=== PATIENT | female | born 1995 | race Caucasian/White ===

== ENCOUNTER 2019-06-25 00:53 | Inpatient (IN) | payer MEDICAID ==
[2019-06-25] MEDS ORDERED: cefTRIAXone 1 GM in Sodium Chloride 0.9% 100 ML IV ONE (01:16)
[2019-06-25] MEDS ORDERED: Lactated Ringers 1,000 ML IV ONE (01:16)
[2019-06-25] MEDS ORDERED: metroNIDAZOLE/Normal Saline 500 MG in Premix Bag 1 BAG IV ONE (01:16)
[2019-06-25] MEDS ORDERED: Pantoprazole 40 MG Vial IVPUSH ONE (01:16)
[2019-06-25] MEDS ORDERED: Famotidine 20 MG/2 ML SDV IVPUSH ONE (01:16)
--- NOTE | 2019-06-25 01:16 | EDM.PDOC ---
ED HPI GENERAL MEDICAL PROBLEM - General Chief Complaint: Abdominal Pain Stated Complaint: abdominal pain Time Seen by Provider: 06/25/19 01:10 Source of Information: Reports: Patient, Family, Old Records ([facility] chart/EMR) History Limitations: Reports: No Limitations - History of Present Illness INITIAL COMMENTS - FREE TEXT/NARRATIVE: Patient was brought to the emergency room via private automobile by her for evaluation of 06/27 diffuse generalized sharp abdominal pain, which started at about 18:00 hours this evening. She began having some mild URI symptoms, sore throat, nonproductive cough, fever, and chills since about 20:00 hours on with no known exposure to infection. She did have a fever of 101 at 21:00 hours this evening with no antipyretic medications taken to this point. She has also not used any OTC GI preparations. No recent history of heartburn, nausea, diarrhea, melena, gross hematochezia, or any food intolerance, including fatty foods, etc. with normal bowel movement yesterday at noon. She denies any gross hematuria, colic, or other UTI symptoms. The patient also denies any recent cough, wheezing, dyspnea, etc.. Her abdominal pain does radiate into the back bilaterally. She has been using Mucinex during the last couple of days. Patient denies any sore throat currently. Onset: Gradual Onset Date: 06/23/19 Onset Time: 20:00 Duration: Constant, Getting Worse Location: Reports: Abdomen, Back. Denies: Head, Face, Neck, Chest, Upper Extremity, Left, Upper Extremity, Right, Radiates to Quality: Reports: Sharp Severity: Moderate Improves with: Reports: None Worsens with: Reports: None Context: Reports: Other (As above). Denies: Sick Contact, Trauma Associated Symptoms: Reports: Cough, Fever/Chills. Denies: Confusion, Chest Pain, cough w sputum, Diaphoresis, Headaches, Loss of Appetite, Nausea/Vomiting , Rash, Shortness of Breath, Syncope, Weakness Treatments IN FLIGHT TECHNICIAN: Reports: Other Medication(s) Other Treatments IN FLIGHT TECHNICIAN: Mucinex Abdomen Pain Score (Numeric/FACES): 8 - Related Data Allergies Allergy/AdvReac Type Severity Reaction Status Date / Time amoxicillin Allergy Rash Verified 06/25/19 00:54 clarithromycin [From Biaxin] Allergy Rash Verified 12/06/14 14:53 Penicillins Allergy Rash Verified 12/06/14 14:52 Sulfa (Sulfonamide Allergy Rash Verified 12/06/14 14:52 Antibiotics) Home Meds: Home Meds Cetirizine [ZyrTEC] 10 mg PO DAILY 06/25/19 [History] FLUoxetine [PROzac] 20 mg PO DAILY 06/25/19 [History] Levothyroxine 25 mcg PO ACBREAKFAST 06/25/19 [History] guaiFENesin [Mucinex] 600 mg PO BID PRN 06/25/19 [History] Past Medical History HEENT History: Reports: Allergic Rhinitis, Impaired Vision, Otitis Media, Other (See Below). Denies: Cataract, Glaucoma, Hard of Hearing, Macular Degeneration , Retinal Detachment Other HEENT History: She wears glasses and soft contact lenses. Cardiovascular History: Reports: None. Denies: Afib, Aneurysm, Arrhythmia, Blood Clots/VTE/DVT, CAD, Heart Murmur, High Cholesterol, Hypertension, Syncope Respiratory History: Reports: Bronchitis, Recurrent, Intubation, Previous. Denies: Asthma, COPD, Intubation, Difficult, PE, Pneumonia, Recurrent, Pneumothorax, Sleep Apnea, TB Gastrointestinal History: Reports: None, Gastritis, Helicobacter Pylori, Other ( See Below). Denies: Celiac Disease, Cholelithiasis, Chronic Constipation, Chronic Diarrhea, Fecal Incontinence, GERD, GI Bleed, Hepatitis, Irritable Bowel Syndrome, Jaundice, Pancreatitis, PUD Other Gastrointestinal History: Previously treated H. pylori infection at age 9. Genitourinary History: Reports: None. Denies: Acute Renal Failure, Chronic Renal Insuffiency, Renal Calculus, STD, Urinary Incontinence, UTI, Recurrent TRAVELING REPRESENTATIVE History: Reports: : 2 Para: 2 LMP (Approximate): Other (See Below) Other TRAVELING REPRESENTATIVE History: Amenorrhea secondary to IUD placement. Full term without complications during pregnancies or deliveries. Musculoskeletal History: Reports: None, Fracture, Other (See Below). Denies: Arthritis, Back Pain, Chronic, Gout, Neck Pain, Chronic, Osteoarthritis, RA, SLE Other Musculoskeletal History: Right proximal radial and ulnar fracture at age 4. Left radial and ulnar fracture at age 22. Neurological History: Reports: Headaches, Chronic, Migraines. Denies: Cerebral Aneurysms, Concussion, CVA, Head Trauma, MS, Parkinson's, Seizure, TIA, Vertigo Psychiatric History: Reports: Anxiety, Depression. Denies: Abuse, Victim of, ADD, ADHD, Addiction, Psych Hospitalization(s), PTSD, Suicide Attempt, Suicidal Ideation Endocrine/Metabolic History: Reports: Hypothyroidism, Obesity/BMI 30+. Denies: Diabetes, Gestational, Diabetes, Type I, Diabetes, Type II, Diabetes Mellitus, Type 3c, IDDM Hematologic History: Reports: None. Denies: Anemia, Blood Transfusion(s), Iron Deficiency Immunologic History: Reports: None. Denies: AIDS, HIV, SLE Oncologic (Cancer) History: Reports: None. Denies: Basal Cell Carcinoma, Breast , Cervix, Colon, Hodgkin's Lymphoma, Leukemia, Lymphoma, Malignant Melanoma, Non -Hodgkin's Lymphoma, Ovarian, Squamous Cell Carcinoma, Uterine Dermatologic History: Reports: None. Denies: Eczema, Psoriasis - Infectious Disease History Infectious Disease History: Reports: Chicken Pox, Helicobacter Pylori ( Previously treated as above). Denies: C-Difficile, Measles, Meningitis, Mononucleosis, MRSA, Mumps, Pertussis (Whooping Cough), Rheumatic Fever, Rubella , Scarlet Fever, Shingles, TB, VRE - Past Surgical History Head Surgeries/Procedures: Reports: None HEENT Surgical History: Reports: Adenoidectomy, Myringotomy w Tube(s), Tonsillectomy, Other (See Below). Denies: Cataract Surgery, Eye Surgery, Laser Surgery, LASIK, Naso-Sinus Surgery, Oral Surgery Other HEENT Surgeries/Procedures: Bilateral PE tubes as a child. Tonsillectomy and adenoidectomy on 10/26/02. Cardiovascular Surgical History: Reports: None. Denies: Varicose Respiratory Surgical History: Reports: None. Denies: Thoracentesis GI Surgical History: Reports: None. Denies: Appendectomy, Cholecystectomy, Colonoscopy, EGD, Hernia, Abdominal, Hernia, Inguinal, Hernia Repair/Other Female Surgical History: Reports: Other (See Below). Denies: Breast Biopsy, Section, D&C, Hysterectomy, Oophorectomy, Salpingo-Oophorectomy, Tubal Ligation Other Female Surgeries/Procedures: IUD in February 2017. Endocrine Surgical History: Reports: None. Denies: Thyroid Biopsy Neurological Surgical History: Reports: None. Denies: C-Spine, Discectomy, Laminectomy, Lumbar Spine, Sacral Spine, Spinal Fusion, Thoracic Spine, Vertebroplasty Musculoskeletal Surgical History: Reports: ORIF, Other (See Below). Denies: Arthroscopic Procedure, Carpal Tunnel, Ganglion Cyst, Joint Replacement, Shoulder Surgery Other Musculoskeletal Surgeries/Procedures:: ORIF of proximal right sided radial /ulnar fracture at age 4. Oncologic Surgical History: Reports: None Dermatological Surgical History: Reports: None - Past Imaging History Past Imaging History: Reports: Ultrasound (OB ultrasounds.) Social & Family History - Family History HEENT: Reports: None. Denies: Glaucoma, Macular Degeneration, Retinal Detachment Cardiac: Reports: CAD, High Cholesterol, NM, Other (See Below). Denies: Afib, Aneurysm, Arrhythmia, Blood Clots/VTE/DVT, Heart Failure, Hypertension, PVD/COD , Syncope Other Cardiac Family History: Paternal grandfather with fatal NM at age 42 with additional hyperlipidemia. Respiratory: Denies: Asthma, COPD, PE, Pneumothorax, Sleep Apnea GI: Reports: None. Denies: Celiac Disease, Cholelithiasis, Colon Polyps, GERD, GI bleed, Inflammatory Bowel Disease, Irritable Bowel Syndrome, PUD : Reports: None. Denies: Renal Calculus, Renal Disease/Insufficiency OBGYN: Reports: None. Denies: Fibroids, Recurrent Spontaneous Musculoskeletal: Reports: None. Denies: Arthritis, Gout, RA, SLE Neurological: Reports: None. Denies: Alzheimers Disease, CVA, Dementia, Migraines, MS, Parkinson's, Seizure, TIA Psychiatric: Reports: None. Denies: Abuse, Victim of, ADD, ADHD, Anxiety, Depression, Psych Hospitalization(s), PTSD, Suicide Attempt Endocrine/Metabolic: Reports: Diabetes, Type I, Hypothyroidism, IDDM, Other ( See Below). Denies: Diabetes, type II Other Endocrine/Metabolic Family History: Paternal grandfather with type I IDDM and hypothyroidism. Hematologic: Reports: None. Denies: Anemia Immunologic: Reports: None. Denies: AIDS, HIV, SLE Dermatologic: Reports: None. Denies: Eczema, Psoriasis Oncologic: Reports: Leukemia, Thyroid, Other (See Below). Denies: Breast, Colon , Hodgkin's Lymphoma, Lymphoma, Non-Hodgkin's Lymphoma, Ovarian, Skin, Uterine Other Oncologic Family History: Paternal grandfather with thyroid cancer. Paternal grandmother with leukemia at age 67. - Tobacco Use Smoking Status *Q: Former Smoker Tobacco Use Within Last Twelve Months: No Years of Tobacco use: 3 Packs/Tins Daily: 0.5 Packs/Tins Daily Comment: Stopped smoking in August 2014. Used Tobacco, but Quit: Yes Smoking Cessation Information Provided To Patient: No Second Hand Smoke Exposure: No Second Hand Smoke Education Provided: No - Caffeine Use Caffeine Use: Reports: Soda (2 sodas per day). Denies: Coffee, Energy Drinks, Tea - Alcohol Use Alcohol Use History: Yes Days Per Week of Alcohol Use: 0 Number of Drinks Per Day: 4 Number of Drinks Per Day Comment: Usually mixed drinks about once per month. No previous DWIs, problems with alcohol abuse, etc. 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 ED EXAM, GI/ABD - Physical Exam Exam: See Below Exam Limited By: No Limitations General Appearance: Alert, WD/WN, No Apparent Distress Eyes: Bilateral: Normal Appearance Ears: Normal External Exam, Normal Canal, Hearing Grossly Normal, Normal TMs Nose: Normal Mucosa, No Blood, Clear Rhinorrhea (Mild bilateral) Throat/Mouth: Normal Lips, Normal Teeth, Normal Gums, Normal Voice, No Airway Compromise. No: Normal Oropharynx (Mild dry oral mucosa), Dysphagia, Perioral Cyanosis Head: Atraumatic, Normocephalic. No: Facial Swelling, Facial Tenderness, Sinus Tenderness Neck: Normal Inspection, Supple, Non-Tender, Full Range of Motion. No: Carotid Bruit, Lymphadenopathy (L), Lymphadenopathy (R), Thyromegaly Respiratory/Chest: No Respiratory Distress, Lungs Clear, Normal Breath Sounds, No Accessory Muscle Use, Chest Non-Tender. No: Pleural Rub, Retractions Cardiovascular: Normal Peripheral Pulses, Regular Rate, Rhythm, No Edema, No Gallop, No JVD, No Murmur, No Rub. No: Gallop/S3, Gallop/S4, Friction Rub GI/Abdominal Exam: Normal Bowel Sounds, No Organomegaly, No Distention, No Abnormal Bruit, No Mass, Tender (Mild to moderate right upper quadrant palpation pain). No: Guarding, Rigid, Rebound (Female) Exam: Deferred Rectal (Female) Exam: Deferred Back Exam: Normal Inspection, Full Range of Motion. No: CVA Tenderness (L), CVA Tenderness (R), Muscle Spasm Extremities: Normal Inspection, Normal Range of Motion, Non-Tender, No Pedal Edema, Normal Capillary Refill. No: Vasyl's Sign Neurological: Alert, Oriented, CN II-XII Intact, Normal Cognition, Normal Gait, Normal Reflexes (Negative Babinski's), No Motor/Sensory Deficits Psychiatric: Normal Affect, Normal Mood Skin Exam: Warm, Dry, Intact, Normal Color, No Rash. No: Diaphoretic, Wound/ Incision Lymphatic: No Adenopathy Course - Vital Signs Last Recorded V/S: Last Vital Signs Temp 37.7 C 06/25/19 02:45 Pulse 85 06/25/19 02:45 Resp 19 06/25/19 02:45 BP 119/56 L 06/25/19 02:45 Pulse Ox 93 L 06/25/19 02:45 Vital Signs - 24 hr 06/25/19 06/25/19 06/25/19 01:06 01:10 01:42 Temperature [ 37.9 C Oral] Pulse, 102 H 102 H 90 Peripheral [ Right Pulse Oximetry] Respiratory 20 18 18 Rate Blood Pressure 98/56 L 92/63 92/57 L [Right Upper Arm] O2 Sat by Pulse 92 L 92 L 94 L Oximetry 06/25/19 06/25/19 06/25/19 01:58 02:12 02:45 Temperature [ 37.7 C Oral] Pulse, 86 85 85 Peripheral [ Right Pulse Oximetry] Respiratory 18 18 19 Rate Blood Pressure 99/65 104/75 119/56 L [Right Upper Arm] O2 Sat by Pulse 93 L 93 L 93 L Oximetry - Orders/Labs/Meds Orders: Active Orders 24 hr Category Date Time Status Cardiac Monitoring [RC] . DIRECTED Care 06/25/19 01:53 Active Peripheral IV Care [RC] . DIRECTED Care 06/25/19 01:16 Active Nothing Per Oral Diet [DIET] Diet 06/25/19 Breakfast Active Abdomen Series w Chest 1V [CR] Stat Exams 06/25/19 01:16 Ordered CULTURE BLOOD [BC] Stat Lab 06/25/19 01:35 Received CULTURE URINE [RM] Stat Lab 06/25/19 01:16 Ordered OCCULT BLOOD DIAGNOSTIC [OP] Stat Lab 06/25/19 01:16 Ordered STREP SCRN A RAPID W CULT CONF [RM] Stat Lab 06/25/19 02:10 Results Sodium Chloride 0.9% [Saline Flush] Med 06/25/19 01:16 Active 10 ml FLUSH ASDIRECTED PRN Blood Culture x2 Reflex Set [OM.PC] Urgent Oth 06/25/19 01:16 Ordered Obtain Past Medical Record [OM.PC] Urgent Oth 06/25/19 01:16 Active Peripheral IV Insertion Adult [OM.PC] Stat Oth 06/25/19 01:16 Ordered Resuscitation Status Stat Resus Stat 06/25/19 01:16 Ordered Medication Orders Sodium Chloride (Saline Flush) 10 ml FLUSH ASDIRECTED PRN PRN Reason: Keep Vein Open Last Admin: 06/25/19 02:08 Dose: 10 ml Admin: 06/25/19 02:07 Dose: 10 ml Admin: 06/25/19 02:00 Dose: 10 ml Labs: Laboratory Tests 06/25/19 06/25/19 06/25/19 Range/Units 01:35 01:35 01:35 WBC 21.7 H (4.0-10.2) K/uL RBC 4.76 (3.77-5.09) M/uL Hgb 15.0 (11.7-15.5) g/dL Hct 42.6 (34.0-46.0) % MCV 89.5 (84.0-98.0) fL MCH 31.5 (28.2-33.3) pg MCHC 35.2 (31.7-36.0) g/dL RDW 12.3 (11.2-14.1) % Plt Count 235 (150-350) K/uL Neut % (Auto) 85.1 H (45.0-80.0) % Lymph % (Auto) 8.8 L (10.0-50.0) % Cameron % (Auto) 5.1 (2.0-14.0) % Eos % (Auto) 0.9 (0.0-5.0) % Baso % (Auto) 0.1 (0.0-2.0) % Neut # (Auto) 18.46 H (1.40-7.00) K/uL Lymph # (Auto) 1.90 (0.50-3.50) K/uL Cameron # (Auto) 1.10 H (0.00-1.00) K/uL Eos # (Auto) 0.20 (0.00-0.50) K/uL Baso # (Auto) 0.03 (0.00-0.20) K/uL PT 11.0 (9.5-12.0) SEC INR 1.0 APTT 32.4 H (21.0-31.3) SEC Sodium (136-145) mmol/L Potassium (3.5-5.1) mmol/L Chloride (98-107) mmol/L Carbon Dioxide (21.0-32.0) mmol/L BUN (7-18) mg/dL Creatinine (0.51-1.17) mg/dL Est Cr Clr Drug Dosing Estimated GFR (MDRD) mL/min Glucose (74-106) mg/dL Lactic Acid (0.4-2.0) mmol/L Uric Acid (2.6-7.2) mg/dL Calcium (8.5-10.1) mg/dL Magnesium (1.8-2.4) mg/dL Total Bilirubin (0.2-1.0) mg/dL AST (15-37) U/L ALT (12-78) U/L Alkaline Phosphatase (46-116) IU/L Total Protein (6.4-8.2) g/dL Albumin (3.4-5.0) g/dL Amylase 23 L (25-115) U/L Lipase (73-393) U/L HCG, Qual (NEGATIVE) Specimen Type Urine Color Urine Appearance Urine pH (5.0-9.0) Ur Specific [place] (1.005-1.030) Urine Protein (NEGATIVE) mg/dL Urine Glucose (UA) (NEGATIVE) mg/dL Urine Ketones (NEGATIVE) mg/dL Urine Occult Blood (NEGATIVE) Urine Nitrite (NEGATIVE) Urine Bilirubin (NEGATIVE) Urine Urobilinogen (0.2-1.0) E.U./dL Ur Leukocyte Esterase (NEGATIVE) Urine RBC /HPF Urine WBC /HPF Ur Epithelial Cells /LPF Urine Bacteria (NONE TO FEW) /HPF Monoscreen (NEGATIVE) 06/25/19 06/25/19 06/25/19 Range/Units 01:35 01:35 01:35 WBC (4.0-10.2) K/uL RBC (3.77-5.09) M/uL Hgb (11.7-15.5) g/dL Hct (34.0-46.0) % MCV (84.0-98.0) fL MCH (28.2-33.3) pg MCHC (31.7-36.0) g/dL RDW (11.2-14.1) % Plt Count (150-350) K/uL Neut % (Auto) (45.0-80.0) % Lymph % (Auto) (10.0-50.0) % Cameron % (Auto) (2.0-14.0) % Eos % (Auto) (0.0-5.0) % Baso % (Auto) (0.0-2.0) % Neut # (Auto) (1.40-7.00) K/uL Lymph # (Auto) (0.50-3.50) K/uL Cameron # (Auto) (0.00-1.00) K/uL Eos # (Auto) (0.00-0.50) K/uL Baso # (Auto) (0.00-0.20) K/uL PT (9.5-12.0) SEC INR APTT (21.0-31.3) SEC Sodium 136 (136-145) mmol/L Potassium 3.7 (3.5-5.1) mmol/L Chloride 100 (98-107) mmol/L Carbon Dioxide 25.2 (21.0-32.0) mmol/L BUN 11 (7-18) mg/dL Creatinine 0.86 (0.51-1.17) mg/dL Est Cr Clr Drug Dosing TNP Estimated GFR (MDRD) > 60 mL/min Glucose 103 (74-106) mg/dL Lactic Acid 1.2 (0.4-2.0) mmol/L Uric Acid 5.7 (2.6-7.2) mg/dL Calcium 9.0 (8.5-10.1) mg/dL Magnesium 1.4 L (1.8-2.4) mg/dL Total Bilirubin 0.6 (0.2-1.0) mg/dL AST 10 L (15-37) U/L ALT 22 (12-78) U/L Alkaline Phosphatase 82 (46-116) IU/L Total Protein 7.7 (6.4-8.2) g/dL Albumin 3.5 (3.4-5.0) g/dL Amylase (25-115) U/L Lipase 36 L (73-393) U/L HCG, Qual Negative (NEGATIVE) Specimen Type Urine Color Urine Appearance Urine pH (5.0-9.0) Ur Specific [place] (1.005-1.030) Urine Protein (NEGATIVE) mg/dL Urine Glucose (UA) (NEGATIVE) mg/dL Urine Ketones (NEGATIVE) mg/dL Urine Occult Blood (NEGATIVE) Urine Nitrite (NEGATIVE) Urine Bilirubin (NEGATIVE) Urine Urobilinogen (0.2-1.0) E.U./dL Ur Leukocyte Esterase (NEGATIVE) Urine RBC /HPF Urine WBC /HPF Ur Epithelial Cells /LPF Urine Bacteria (NONE TO FEW) /HPF Monoscreen (NEGATIVE) 06/25/19 06/25/19 Range/Units 02:10 02:30 WBC (4.0-10.2) K/uL RBC (3.77-5.09) M/uL Hgb (11.7-15.5) g/dL Hct (34.0-46.0) % MCV (84.0-98.0) fL MCH (28.2-33.3) pg MCHC (31.7-36.0) g/dL RDW (11.2-14.1) % Plt Count (150-350) K/uL Neut % (Auto) (45.0-80.0) % Lymph % (Auto) (10.0-50.0) % Cameron % (Auto) (2.0-14.0) % Eos % (Auto) (0.0-5.0) % Baso % (Auto) (0.0-2.0) % Neut # (Auto) (1.40-7.00) K/uL Lymph # (Auto) (0.50-3.50) K/uL Cameron # (Auto) (0.00-1.00) K/uL Eos # (Auto) (0.00-0.50) K/uL Baso # (Auto) (0.00-0.20) K/uL PT (9.5-12.0) SEC INR APTT (21.0-31.3) SEC Sodium (136-145) mmol/L Potassium (3.5-5.1) mmol/L Chloride (98-107) mmol/L Carbon Dioxide (21.0-32.0) mmol/L BUN (7-18) mg/dL Creatinine (0.51-1.17) mg/dL Est Cr Clr Drug Dosing Estimated GFR (MDRD) mL/min Glucose (74-106) mg/dL Lactic Acid (0.4-2.0) mmol/L Uric Acid (2.6-7.2) mg/dL Calcium (8.5-10.1) mg/dL Magnesium (1.8-2.4) mg/dL Total Bilirubin (0.2-1.0) mg/dL AST (15-37) U/L ALT (12-78) U/L Alkaline Phosphatase (46-116) IU/L Total Protein (6.4-8.2) g/dL Albumin (3.4-5.0) g/dL Amylase (25-115) U/L Lipase (73-393) U/L HCG, Qual (NEGATIVE) Specimen Type Urinvoid Urine Color Yellow Urine Appearance Clear Urine pH 8.5 (5.0-9.0) Ur Specific [place] 1.015 (1.005-1.030) Urine Protein Negative (NEGATIVE) mg/dL Urine Glucose (UA) Negative (NEGATIVE) mg/dL Urine Ketones Negative (NEGATIVE) mg/dL Urine Occult Blood Negative (NEGATIVE) Urine Nitrite Negative (NEGATIVE) Urine Bilirubin Negative (NEGATIVE) Urine Urobilinogen 1.0 (0.2-1.0) E.U./dL Ur Leukocyte Esterase Negative (NEGATIVE) Urine RBC 0-5 /HPF Urine WBC 0-5 /HPF Ur Epithelial Cells Few /LPF Urine Bacteria Few (NONE TO FEW) /HPF Monoscreen Negative (NEGATIVE) Blood culture 1 collected Urine specimen set up for culture and sensitivity Microbiology 06/25/19 02:10 Group A Streptococcus Rapid Screen - Final Throat NEGATIVE STREP A SCREEN REFERENCE RANGE: NEGATIVE Meds: Medications Generic Name Dose Route Start Last Admin Trade Name Freq PRN Reason Stop Dose Admin Sodium Chloride 10 ml 06/25/19 01:16 06/25/19 02:56 Saline Flush FLUSH 10 ml ASDIRECTED PRN Administration Keep Vein Open Discontinued Medications Generic Name Dose Route Start Last Admin Trade Name Freq PRN Reason Stop Dose Admin Famotidine 40 mg 06/25/19 01:16 06/25/19 02:07 Pepcid IVPUSH 06/25/19 01:17 40 mg ONETIME ONE Administration Ceftriaxone Sodium 1 gm/ 100 mls @ 200 mls/hr 06/25/19 01:16 06/25/19 03:04 Sodium Chloride IV 06/25/19 01:45 Not Given ONETIME ONE Lactated Ringer's 1,000 mls @ 999 mls/hr 06/25/19 01:16 06/25/19 02:56 Ringers, Lactated IV 06/25/19 02:16 999 mls/hr .BOLUS ONE Administration Metronidazole 500 mg/ Premix 100 mls @ 100 mls/hr 06/25/19 01:16 06/25/19 02: 55 IV 06/25/19 02:15 100 mls/hr ONETIME ONE Administration Ceftriaxone Sodium 2 gm/ 100 mls @ 100 mls/hr 06/25/19 01:52 06/25/19 01:59 Sodium Chloride IV 06/25/19 02:51 100 mls/hr ONETIME ONE Administration Pantoprazole Sodium 40 mg 06/25/19 01:16 06/25/19 02:07 Protonix Iv IVPUSH 06/25/19 01:17 40 mg ONETIME ONE Administration - Radiology Interpretation Free Text/Narrative:: Micro Computer Data Processor shows normal sinus rhythm with heart rate in the 80s to 90s no ectopy or arrhythmia. Acute abdominal x-rays shows evidence of mild occasional nonspecific fluid levels with no significant ileus, obstruction, free air, cardiomegaly, CHF, pulmonary infiltrates, pneumothorax, etc. Departure - Departure Time of Disposition: 03:10 Disposition: Admitted As Inpatient 65 Condition: Good Clinical Impression: Abdominal pain, Obesity (BMI 35.0-39.9 without comorbidity), Mixed anxiety depressive disorder, Dehydration, Hypomagnesemia - Discharge Information *PRESCRIPTION DRUG MONITORING PROGRAM REVIEWED*: Not Applicable *COPY OF PRESCRIPTION DRUG MONITORING REPORT IN PATIENT ELOISE: Not Applicable Referrals: Lynn Barker NP [Primary Care Provider] - Forms: ED Department Discharge Care Plan Goals: See plan - Problem List & Annotations (1) Abdominal pain SNOMED Code(s): 04976346 Code(s): R10.9 - UNSPECIFIED ABDOMINAL PAIN Status: Acute Priority: High Onset Date: 06/24/19 Annotation/Comment:: Generalized abdominal pain with clinical exam showing mostly right upper quadrant abdominal pain. Abdominal ultrasound to be conducted later today. Note difficulty obtaining IV access with IV not amenable to CT scan of the abdomen at this time. Note significant leukocytosis. Mild hypotension on arriva, however normal lactic acid level with no direct indication of sepsis despite leukocytosis as above. Close observation of her vitals and abdominal status. High-dose IV Rocephin and additional IV Flagyl initiated in the emergency room. High-dose IV Protonix and IV Pepcid also given the emergency room as GI prophylaxis. Surgical consultation depending on her clinical course. Consider retrial of IV placement after patient is rehydrated with 1 L by IV bolus lactated Ringer's initiated in the emergency room. Secondary to difficult IV access only one blood culture could be obtained. Bobcat work excuse provided for the patient's . Patient to be admitted on telemetry secondary to significant leukocytosis. Qualifiers: Abdominal location: generalized Qualified Code(s): R10.84 - Generalized abdominal pain (2) Dehydration SNOMED Code(s): 98363077 Code(s): E86.0 - DEHYDRATION Status: Acute Priority: High Onset Date: 06/25/19 Annotation/Comment:: IV lactated Ringer's as above with continuation of IV fluids during early phases of this hospitalization. (3) Mixed anxiety depressive disorder SNOMED Code(s): 201720827 Code(s): F41.8 - OTHER SPECIFIED ANXIETY DISORDERS Status: Chronic Priority: Medium Annotation/Comment:: Stable by patient history (4) Obesity (BMI 35.0-39.9 without comorbidity) SNOMED Code(s): 758631672, 881043972 Code(s): E66.9 - OBESITY, UNSPECIFIED Status: Chronic Priority: Medium Annotation/Comment:: Previously normal glycosylated hemoglobin and lipid panel in 2018. Weight loss in moderation advisable. (5) Hypomagnesemia SNOMED Code(s): 271493006 Code(s): E83.42 - HYPOMAGNESEMIA Status: Acute Priority: Medium Onset Date: 06/25/19 Annotation/Comment:: Initiate magnesium oxide therapy on admission. - Problem List Review Problem List Initiated/Reviewed/Updated: Yes - My Orders Last 24 Hours: My Active Orders 06/25/19 01:16 Peripheral IV Care [RC] . DIRECTED Abdomen Series w Chest 1V [CR] Stat CULTURE URINE [RM] Stat OCCULT BLOOD DIAGNOSTIC [OP] Stat Sodium Chloride 0.9% [Saline Flush] 10 ml FLUSH ASDIRECTED PRN Blood Culture x2 Reflex Set [OM.PC] Urgent Obtain Past Medical Record [OM.PC] Urgent Peripheral IV Insertion Adult [OM.PC] Stat Resuscitation Status Stat 06/25/19 01:35 CULTURE BLOOD [BC] Stat 06/25/19 01:53 Cardiac Monitoring [RC] . DIRECTED 06/25/19 02:10 STREP SCRN A RAPID W CULT CONF [RM] Stat 06/25/19 Breakfast Nothing Per Oral Diet [DIET] - Assessment/Plan Admission H&P: Please use this note as an admission H&P Last 24 Hours: My Active Orders 06/25/19 01:16 Peripheral IV Care [RC] . DIRECTED Abdomen Series w Chest 1V [CR] Stat CULTURE URINE [RM] Stat OCCULT BLOOD DIAGNOSTIC [OP] Stat Sodium Chloride 0.9% [Saline Flush] 10 ml FLUSH ASDIRECTED PRN Blood Culture x2 Reflex Set [OM.PC] Urgent Obtain Past Medical Record [OM.PC] Urgent Peripheral IV Insertion Adult [OM.PC] Stat Resuscitation Status Stat 06/25/19 01:35 CULTURE BLOOD [BC] Stat 06/25/19 01:53 Cardiac Monitoring [RC] . DIRECTED 06/25/19 02:10 STREP SCRN A RAPID W CULT CONF [RM] Stat 06/25/19 Breakfast Nothing Per Oral Diet [DIET] Assessment:: As above Plan: As above. Extensive precautions were given to the patient and her , who are in agreement with the treatment plan. The patient will require about 3-4 days of inpatient/acute care secondary to multiple health problems as above.
[2019-06-25] MEDS ORDERED: cefTRIAXone 2 GM in Sodium Chloride 0.9% 100 ML IV ONE (01:52)
[2019-06-25 01:59] LABS: CHLORIDE,CL 100 mmol/L (98-107); SODIUM,NA 136 mmol/L (136-145)
[2019-06-25] MEDS: Sodium Chloride 0.9% 10 ML Syringe FLUSH PRN ×7 (02:00→14:16)
[2019-06-25] MEDS ORDERED: Ondansetron 4 MG/2 ML SDV IVPUSH PRN (03:25)
[2019-06-25] MEDS: Acetaminophen 325 MG Tab PO PRN ×2 (04:09→22:11)
[2019-06-25] MEDS: FLUoxetine 20 MG Cap PO SCH (08:42)
[2019-06-25] MEDS: Cetirizine 10 MG Tab PO SCH (08:42)
[2019-06-25] MEDS: Magnesium Oxide 400 MG Tab PO SCH ×2 (08:42→17:07)
[2019-06-25] MEDS: Dextromethorphan/guaiFENesin 600-30 MG Tab.ER PO SCH ×2 (08:42→17:07)
[2019-06-25] MEDS: Levothyroxine 25 MCG Tab PO SCH (08:42)
[2019-06-25] MEDS: Sodium Chloride 0.9% 10 ML Syringe FLUSH SCH ×2 (08:43→19:39)
[2019-06-25] MEDS ORDERED: Sodium Chloride 0.9% 10 ML Syringe FLUSH PRN (08:56)
[2019-06-25] MEDS ORDERED: Diatrizoate Meglumine/Diatrizoate Sodium 37% 30 ML Bottle PO ONE (09:13)
[2019-06-25] MEDS ORDERED: Iopamidol 612 MG/ML 100 ML Bottle IVPUSH ONE (10:00)
[2019-06-25] MEDS: metroNIDAZOLE/Normal Saline 500 MG in Premix Bag 1 BAG IV SCH ×2 (12:32→19:32)
[2019-06-25] MEDS: cefTRIAXone 1 GM in Sodium Chloride 0.9% 100 ML IV SCH (14:10)
[2019-06-25] MEDS: Pantoprazole 40 MG Vial IVPUSH SCH (14:13)
[2019-06-25] MEDS: Lactated Ringers 1,000 ML IV SCH (14:14)
[2019-06-25] MEDS ORDERED: Temazepam 15 MG Cap PO PRN (20:00)
[2019-06-26] MEDS: Pantoprazole 40 MG Vial IVPUSH SCH ×2 (01:23→13:02)
[2019-06-26] MEDS: cefTRIAXone 1 GM in Sodium Chloride 0.9% 100 ML IV SCH (01:28)
[2019-06-26] MEDS: metroNIDAZOLE/Normal Saline 500 MG in Premix Bag 1 BAG IV SCH ×3 (03:10→20:10)
[2019-06-26] MEDS: Sodium Chloride 0.9% 10 ML Syringe FLUSH PRN ×4 (03:15→22:47)
[2019-06-26] MEDS: Lactated Ringers 1,000 ML IV SCH (05:03)
[2019-06-26] MEDS: Famotidine 20 MG/2 ML SDV IVPUSH SCH ×2 (07:06→20:09)
[2019-06-26] MEDS: Levothyroxine 25 MCG Tab PO SCH (07:06)
[2019-06-26] MEDS: FLUoxetine 20 MG Cap PO SCH (07:07)
[2019-06-26] MEDS: Dextromethorphan/guaiFENesin 600-30 MG Tab.ER PO SCH ×2 (07:07→17:03)
[2019-06-26] MEDS: Magnesium Oxide 400 MG Tab PO SCH (07:07)
[2019-06-26] MEDS: Cetirizine 10 MG Tab PO SCH (07:08)
[2019-06-26] MEDS: Sodium Chloride 0.9% 10 ML Syringe FLUSH SCH ×2 (07:09→20:11)
[2019-06-26 07:51] LABS: CHLORIDE,CL 103 mmol/L (98-107); SODIUM,NA 137 mmol/L (136-145)
[2019-06-26] MEDS: Ciprofloxacin in D5W 200 MG in Premix Bag 1 BAG IV SCH ×4 (11:12→22:46)
--- NOTE | 2019-06-26 14:55 | PCM.PN ---
- General Info Date of Service: 06/26/19 Admission Dx/Problem (Free Text): Colitis Functional Status: Reports: Pain Controlled, Tolerating Diet, Ambulating, Urinating. Denies: New Symptoms, Incentive Spirometry Pain Score: 0 - Review of Systems General: Reports: No Symptoms. Denies: Fever, Weakness, Fatigue, Malaise, Chills, Night Sweats, Appetite (Better) HEENT: Reports: No Symptoms. Denies: Ear Pain, Eye Pain, Headaches, Post Nasal Drip, Sinus Congestion, Sore Throat, Rhinitis, Visual Changes Pulmonary: Reports: No Symptoms. Denies: Shortness of Breath, Pleuritic Chest Pain, Cough, Sputum, Wheezing Cardiovascular: Reports: No Symptoms. Denies: Chest Pain, Palpitations, Dyspnea on Exertion, Orthopnea, PND, Edema, Lightheadedness Gastrointestinal: Reports: No Symptoms. Denies: Abdominal Pain, Constipation, Decreased Appetite, Diarrhea, Difficulty Swallowing, Hematochezia, Melena, Nausea, Vomiting Genitourinary: Reports: No Symptoms. Denies: Dysuria, Frequency, Burning, Urgency, Incontinence, Hematuria, Retention, Flank Pain Musculoskeletal: Reports: No Symptoms. Denies: Neck Pain, Shoulder Pain, Arm Pain, Back Pain, Leg Pain Skin: Reports: No Symptoms. Denies: Diaphoresis, Bruising Neurological: Reports: No Symptoms. Denies: Confusion, Dizziness, Headache, Numbness, Paresthesia, Tingling, Weakness Psychiatric: Reports: No Symptoms. Denies: Confusion, Agitation, Hallucinations - Patient Data Vitals - Most Recent: Last Vital Signs Temp 36.6 C 06/26/19 12:00 Pulse 66 06/26/19 12:00 Resp 14 06/26/19 12:00 BP 105/50 L 06/26/19 12:00 Pulse Ox 96 06/26/19 12:00 Vital Signs - 24 hr 06/25/19 06/25/19 06/25/19 15:00 19:00 20:00 Temperature [ 37.1 C 37.3 C Temporal] Pulse, 85 Peripheral [ Left Pulse Oximetry] Pulse, 89 Peripheral [ Right Pulse Oximetry] Respiratory 16 14 Rate Blood Pressure 102/42 L 108/49 L [Left Upper Arm ] O2 Sat by Pulse 100 95 98 Oximetry 06/25/19 06/26/19 06/26/19 22:11 03:09 08:00 Temperature [ 36.9 C 36.0 C 37.1 C Temporal] Pulse, 80 70 68 Peripheral [ Left Pulse Oximetry] Pulse, Peripheral [ Right Pulse Oximetry] Respiratory 16 14 Rate Blood Pressure 107/60 98/56 L 96/55 L [Left Upper Arm ] O2 Sat by Pulse 97 98 98 Oximetry 06/26/19 12:00 Temperature [ 36.6 C Temporal] Pulse, 66 Peripheral [ Left Pulse Oximetry] Pulse, Peripheral [ Right Pulse Oximetry] Respiratory 14 Rate Blood Pressure 105/50 L [Left Upper Arm ] O2 Sat by Pulse 96 Oximetry Weight - Most Recent: 133.855 kg I&O - Last 24 Hours: Intake & Output 06/25/19 06/26/19 06/26/19 22:59 06:59 14:59 Intake Total 900 870 860 Output Total 1100 700 650 Balance -200 170 210 Imaging Impressions - Last 24 Hours: desk monitor shows normal sinus rhythm between the 60s and 80s with no ectopy or arrhythmia. Lab Results Last 24 Hours: Laboratory Results - last 24 hr 06/26/19 06/26/19 Range/Units 07:15 07:15 WBC 9.5 (4.0-10.2) K/uL RBC 4.13 (3.77-5.09) M/uL Hgb 13.0 D (11.7-15.5) g/dL Hct 37.9 (34.0-46.0) % MCV 91.8 (84.0-98.0) fL MCH 31.5 (28.2-33.3) pg MCHC 34.3 (31.7-36.0) g/dL RDW 12.4 (11.2-14.1) % Plt Count 166 (150-350) K/uL Neut % (Auto) 73.9 (45.0-80.0) % Lymph % (Auto) 13.8 (10.0-50.0) % Wise % (Auto) 7.9 (2.0-14.0) % Eos % (Auto) 4.3 (0.0-5.0) % Baso % (Auto) 0.1 (0.0-2.0) % Neut # (Auto) 7.00 (1.40-7.00) K/uL Lymph # (Auto) 1.31 (0.50-3.50) K/uL Wise # (Auto) 0.75 (0.00-1.00) K/uL Eos # (Auto) 0.41 (0.00-0.50) K/uL Baso # (Auto) 0.01 (0.00-0.20) K/uL Sodium 137 (136-145) mmol/L Potassium 4.0 (3.5-5.1) mmol/L Chloride 103 (98-107) mmol/L Carbon Dioxide 27.9 (21.0-32.0) mmol/L BUN 10 (7-18) mg/dL Creatinine 0.85 (0.51-1.17) mg/dL Est Cr Clr Drug Dosing 94.71 mL/min Estimated GFR (MDRD) > 60 mL/min Glucose 99 (74-106) mg/dL Calcium 8.4 L (8.5-10.1) mg/dL Magnesium 1.9 (1.8-2.4) mg/dL Total Bilirubin 0.2 (0.2-1.0) mg/dL AST 15 (15-37) U/L ALT 17 (12-78) U/L Alkaline Phosphatase 65 (46-116) IU/L Total Protein 6.6 (6.4-8.2) g/dL Albumin 2.9 L (3.4-5.0) g/dL Amylase 20 L (25-115) U/L Lipase 52 L (73-393) U/L Laboratory Tests 06/25/19 06/25/19 06/25/19 Range/Units 01:35 01:35 01:35 WBC 21.7 H (4.0-10.2) K/uL RBC 4.76 (3.77-5.09) M/uL Hgb 15.0 (11.7-15.5) g/dL Hct 42.6 (34.0-46.0) % MCV 89.5 (84.0-98.0) fL MCH 31.5 (28.2-33.3) pg MCHC 35.2 (31.7-36.0) g/dL RDW 12.3 (11.2-14.1) % Plt Count 235 (150-350) K/uL Neut % (Auto) 85.1 H (45.0-80.0) % Lymph % (Auto) 8.8 L (10.0-50.0) % Wise % (Auto) 5.1 (2.0-14.0) % Eos % (Auto) 0.9 (0.0-5.0) % Baso % (Auto) 0.1 (0.0-2.0) % Neut # (Auto) 18.46 H (1.40-7.00) K/uL Lymph # (Auto) 1.90 (0.50-3.50) K/uL Wise # (Auto) 1.10 H (0.00-1.00) K/uL Eos # (Auto) 0.20 (0.00-0.50) K/uL Baso # (Auto) 0.03 (0.00-0.20) K/uL PT 11.0 (9.5-12.0) SEC INR 1.0 APTT 32.4 H (21.0-31.3) SEC Sodium (136-145) mmol/L Potassium (3.5-5.1) mmol/L Chloride (98-107) mmol/L Carbon Dioxide (21.0-32.0) mmol/L BUN (7-18) mg/dL Creatinine (0.51-1.17) mg/dL Est Cr Clr Drug Dosing Estimated GFR (MDRD) mL/min Glucose (74-106) mg/dL Lactic Acid (0.4-2.0) mmol/L Uric Acid (2.6-7.2) mg/dL Calcium (8.5-10.1) mg/dL Magnesium (1.8-2.4) mg/dL Total Bilirubin (0.2-1.0) mg/dL AST (15-37) U/L ALT (12-78) U/L Alkaline Phosphatase (46-116) IU/L Total Protein (6.4-8.2) g/dL Albumin (3.4-5.0) g/dL Amylase 23 L (25-115) U/L Lipase (73-393) U/L HCG, Qual (NEGATIVE) Specimen Type Urine Color Urine Appearance Urine pH (5.0-9.0) Ur Specific [place] (1.005-1.030) Urine Protein (NEGATIVE) mg/dL Urine Glucose (UA) (NEGATIVE) mg/dL Urine Ketones (NEGATIVE) mg/dL Urine Occult Blood (NEGATIVE) Urine Nitrite (NEGATIVE) Urine Bilirubin (NEGATIVE) Urine Urobilinogen (0.2-1.0) E.U./dL Ur Leukocyte Esterase (NEGATIVE) Urine RBC /HPF Urine WBC /HPF Ur Epithelial Cells /LPF Urine Bacteria (NONE TO FEW) /HPF Monoscreen (NEGATIVE) 06/25/19 06/25/19 06/25/19 Range/Units 01:35 01:35 01:35 WBC (4.0-10.2) K/uL RBC (3.77-5.09) M/uL Hgb (11.7-15.5) g/dL Hct (34.0-46.0) % MCV (84.0-98.0) fL MCH (28.2-33.3) pg MCHC (31.7-36.0) g/dL RDW (11.2-14.1) % Plt Count (150-350) K/uL Neut % (Auto) (45.0-80.0) % Lymph % (Auto) (10.0-50.0) % Wise % (Auto) (2.0-14.0) % Eos % (Auto) (0.0-5.0) % Baso % (Auto) (0.0-2.0) % Neut # (Auto) (1.40-7.00) K/uL Lymph # (Auto) (0.50-3.50) K/uL Wise # (Auto) (0.00-1.00) K/uL Eos # (Auto) (0.00-0.50) K/uL Baso # (Auto) (0.00-0.20) K/uL PT (9.5-12.0) SEC INR APTT (21.0-31.3) SEC Sodium 136 (136-145) mmol/L Potassium 3.7 (3.5-5.1) mmol/L Chloride 100 (98-107) mmol/L Carbon Dioxide 25.2 (21.0-32.0) mmol/L BUN 11 (7-18) mg/dL Creatinine 0.86 (0.51-1.17) mg/dL Est Cr Clr Drug Dosing TNP Estimated GFR (MDRD) > 60 mL/min Glucose 103 (74-106) mg/dL Lactic Acid 1.2 (0.4-2.0) mmol/L Uric Acid 5.7 (2.6-7.2) mg/dL Calcium 9.0 (8.5-10.1) mg/dL Magnesium 1.4 L (1.8-2.4) mg/dL Total Bilirubin 0.6 (0.2-1.0) mg/dL AST 10 L (15-37) U/L ALT 22 (12-78) U/L Alkaline Phosphatase 82 (46-116) IU/L Total Protein 7.7 (6.4-8.2) g/dL Albumin 3.5 (3.4-5.0) g/dL Amylase (25-115) U/L Lipase 36 L (73-393) U/L HCG, Qual Negative (NEGATIVE) Specimen Type Urine Color Urine Appearance Urine pH (5.0-9.0) Ur Specific [place] (1.005-1.030) Urine Protein (NEGATIVE) mg/dL Urine Glucose (UA) (NEGATIVE) mg/dL Urine Ketones (NEGATIVE) mg/dL Urine Occult Blood (NEGATIVE) Urine Nitrite (NEGATIVE) Urine Bilirubin (NEGATIVE) Urine Urobilinogen (0.2-1.0) E.U./dL Ur Leukocyte Esterase (NEGATIVE) Urine RBC /HPF Urine WBC /HPF Ur Epithelial Cells /LPF Urine Bacteria (NONE TO FEW) /HPF Monoscreen (NEGATIVE) 06/25/19 06/25/19 06/26/19 Range/Units 02:10 02:30 07:15 WBC 9.5 (4.0-10.2) K/uL RBC 4.13 (3.77-5.09) M/uL Hgb 13.0 D (11.7-15.5) g/dL Hct 37.9 (34.0-46.0) % MCV 91.8 (84.0-98.0) fL MCH 31.5 (28.2-33.3) pg MCHC 34.3 (31.7-36.0) g/dL RDW 12.4 (11.2-14.1) % Plt Count 166 (150-350) K/uL Neut % (Auto) 73.9 (45.0-80.0) % Lymph % (Auto) 13.8 (10.0-50.0) % Wise % (Auto) 7.9 (2.0-14.0) % Eos % (Auto) 4.3 (0.0-5.0) % Baso % (Auto) 0.1 (0.0-2.0) % Neut # (Auto) 7.00 (1.40-7.00) K/uL Lymph # (Auto) 1.31 (0.50-3.50) K/uL Wise # (Auto) 0.75 (0.00-1.00) K/uL Eos # (Auto) 0.41 (0.00-0.50) K/uL Baso # (Auto) 0.01 (0.00-0.20) K/uL PT (9.5-12.0) SEC INR APTT (21.0-31.3) SEC Sodium (136-145) mmol/L Potassium (3.5-5.1) mmol/L Chloride (98-107) mmol/L Carbon Dioxide (21.0-32.0) mmol/L BUN (7-18) mg/dL Creatinine (0.51-1.17) mg/dL Est Cr Clr Drug Dosing Estimated GFR (MDRD) mL/min Glucose (74-106) mg/dL Lactic Acid (0.4-2.0) mmol/L Uric Acid (2.6-7.2) mg/dL Calcium (8.5-10.1) mg/dL Magnesium (1.8-2.4) mg/dL Total Bilirubin (0.2-1.0) mg/dL AST (15-37) U/L ALT (12-78) U/L Alkaline Phosphatase (46-116) IU/L Total Protein (6.4-8.2) g/dL Albumin (3.4-5.0) g/dL Amylase (25-115) U/L Lipase (73-393) U/L HCG, Qual (NEGATIVE) Specimen Type Urinvoid Urine Color Yellow Urine Appearance Clear Urine pH 8.5 (5.0-9.0) Ur Specific [place] 1.015 (1.005-1.030) Urine Protein Negative (NEGATIVE) mg/dL Urine Glucose (UA) Negative (NEGATIVE) mg/dL Urine Ketones Negative (NEGATIVE) mg/dL Urine Occult Blood Negative (NEGATIVE) Urine Nitrite Negative (NEGATIVE) Urine Bilirubin Negative (NEGATIVE) Urine Urobilinogen 1.0 (0.2-1.0) E.U./dL Ur Leukocyte Esterase Negative (NEGATIVE) Urine RBC 0-5 /HPF Urine WBC 0-5 /HPF Ur Epithelial Cells Few /LPF Urine Bacteria Few (NONE TO FEW) /HPF Monoscreen Negative (NEGATIVE) 06/26/19 Range/Units 07:15 WBC (4.0-10.2) K/uL RBC (3.77-5.09) M/uL Hgb (11.7-15.5) g/dL Hct (34.0-46.0) % MCV (84.0-98.0) fL MCH (28.2-33.3) pg MCHC (31.7-36.0) g/dL RDW (11.2-14.1) % Plt Count (150-350) K/uL Neut % (Auto) (45.0-80.0) % Lymph % (Auto) (10.0-50.0) % Wise % (Auto) (2.0-14.0) % Eos % (Auto) (0.0-5.0) % Baso % (Auto) (0.0-2.0) % Neut # (Auto) (1.40-7.00) K/uL Lymph # (Auto) (0.50-3.50) K/uL Wise # (Auto) (0.00-1.00) K/uL Eos # (Auto) (0.00-0.50) K/uL Baso # (Auto) (0.00-0.20) K/uL PT (9.5-12.0) SEC INR APTT (21.0-31.3) SEC Sodium 137 (136-145) mmol/L Potassium 4.0 (3.5-5.1) mmol/L Chloride 103 (98-107) mmol/L Carbon Dioxide 27.9 (21.0-32.0) mmol/L BUN 10 (7-18) mg/dL Creatinine 0.85 (0.51-1.17) mg/dL Est Cr Clr Drug Dosing 94.71 Estimated GFR (MDRD) > 60 mL/min Glucose 99 (74-106) mg/dL Lactic Acid (0.4-2.0) mmol/L Uric Acid (2.6-7.2) mg/dL Calcium 8.4 L (8.5-10.1) mg/dL Magnesium 1.9 (1.8-2.4) mg/dL Total Bilirubin 0.2 (0.2-1.0) mg/dL AST 15 (15-37) U/L ALT 17 (12-78) U/L Alkaline Phosphatase 65 (46-116) IU/L Total Protein 6.6 (6.4-8.2) g/dL Albumin 2.9 L (3.4-5.0) g/dL Amylase 20 L (25-115) U/L Lipase 52 L (73-393) U/L HCG, Qual (NEGATIVE) Specimen Type Urine Color Urine Appearance Urine pH (5.0-9.0) Ur Specific [place]y (1.005-1.030) Urine Protein (NEGATIVE) mg/dL Urine Glucose (UA) (NEGATIVE) mg/dL Urine Ketones (NEGATIVE) mg/dL Urine Occult Blood (NEGATIVE) Urine Nitrite (NEGATIVE) Urine Bilirubin (NEGATIVE) Urine Urobilinogen (0.2-1.0) E.U./dL Ur Leukocyte Esterase (NEGATIVE) Urine RBC /HPF Urine WBC /HPF Ur Epithelial Cells /LPF Urine Bacteria (NONE TO FEW) /HPF Monoscreen (NEGATIVE) Kody Results Last 24 Hours: Microbiology 06/25/19 02:30 Urine Culture - Final Urine, Clean Catch MIXED POSITIVE ADALGISA DAY 1 06/25/19 02:10 Quick Strep Confirmation Culture - Final Throat NO GROUP A STREP ISOLATED REFERENCE RANGE: NEGATIVE Group A Streptococcus Rapid Screen - Final NEGATIVE STREP A SCREEN REFERENCE RANGE: NEGATIVE 06/25/19 01:35 Aerobic Blood Culture - Preliminary Blood - Venous NO GROWTH AFTER 1 DAY Anaerobic Blood Culture - Preliminary NO GROWTH AFTER 1 DAY 06/25/19 10:00 Stool Occult Blood (KODY) - Final Stool / Feces NEGATIVE OCCULT BLOOD REFERENCE RANGE: NEGATIVE Med Orders - Current: Current Medications Acetaminophen (Tylenol) 650 mg PO Q4H PRN PRN Reason: Pain Last Admin: 06/25/19 22:11 Dose: 650 mg Cetirizine HCl (Zyrtec) 10 mg PO DAILY [facility]ANN[facility] Last Admin: 06/26/19 07:08 Dose: 10 mg Famotidine (Pepcid) 20 mg IVPUSH Q12H [facility] Last Admin: 06/26/19 07:06 Dose: 20 mg Fluoxetine HCl (Prozac) 20 mg PO DAILY [facility] Last Admin: 06/26/19 07:07 Dose: 20 mg Guaifenesin/Dextromethorphan (Mucinex Dm Er 600-30 Mg) 1 tab PO BID [facility] Last Admin: 06/26/19 07:07 Dose: 1 tab Metronidazole 500 mg/ Premix 100 mls @ 100 mls/hr IV Q8H [facility] Last Admin: 06/26/19 13:02 Dose: 100 mls/hr Lactated Ringer's (Ringers, Lactated) 1,000 mls @ 100 mls/hr IV ASDIRECTED [facility] Last Admin: 06/26/19 05:03 Dose: 100 mls/hr Ciprofloxacin/Dextrose 200 mg/ (Premix) 100 mls @ 100 mls/hr IV Q12H [facility] Last Admin: 06/26/19 11:12 Dose: 100 mls/hr Levothyroxine Sodium (Levothyroxine) 25 mcg PO ACBREAKFAST [facility] Last Admin: 06/26/19 07:06 Dose: 25 mcg Magnesium Oxide (Magnesium Oxide) 400 mg PO QPM [facility] Ondansetron HCl (Zofran) 4 mg IVPUSH Q6H PRN PRN Reason: Nausea/Vomiting Last Admin: 06/25/19 09:52 Dose: 4 mg Pantoprazole Sodium (Protonix Iv) 40 mg IVPUSH Q12H [facility] Last Admin: 06/26/19 13:02 Dose: 40 mg Sodium Chloride (Saline Flush) 10 ml FLUSH ASDIRECTED PRN PRN Reason: Keep Vein Open Last Admin: 06/26/19 13:07 Dose: 10 ml Sodium Chloride (Saline Flush) 10 ml FLUSH Q12HR [facility] Last Admin: 06/26/19 07:09 Dose: 10 ml Sodium Chloride (Saline Flush) 10 ml FLUSH ASDIRECTED PRN PRN Reason: Keep Vein Open Last Admin: 06/26/19 01:23 Dose: 10 ml Temazepam (Restoril) 15 mg PO DAILY@2000 PRN PRN Reason: Insomnia Discontinued Medications Diatrizoate Meglum/Diatrizoate Sod (Gastrografin 37%) 30 ml PO ONETIME ONE Stop: 06/25/19 09:14 Last Admin: 06/25/19 13:51 Dose: 30 ml Famotidine (Pepcid) 40 mg IVPUSH ONETIME ONE Stop: 06/25/19 01:17 Last Admin: 06/25/19 02:07 Dose: 40 mg Ceftriaxone Sodium 1 gm/ (Sodium Chloride) 100 mls @ 200 mls/hr IV ONETIME ONE Stop: 06/25/19 01:45 Last Admin: 06/25/19 03:04 Dose: Not Given Lactated Ringer's (Ringers, Lactated) 1,000 mls @ 999 mls/hr IV .BOLUS ONE Stop: 06/25/19 02:16 Last Admin: 06/25/19 02:56 Dose: 999 mls/hr Metronidazole 500 mg/ Premix 100 mls @ 100 mls/hr IV ONETIME ONE Stop: 06/25/19 02:15 Last Admin: 06/25/19 02:55 Dose: 100 mls/hr Ceftriaxone Sodium 2 gm/ (Sodium Chloride) 100 mls @ 100 mls/hr IV ONETIME ONE Stop: 06/25/19 02:51 Last Admin: 06/25/19 01:59 Dose: 100 mls/hr Ceftriaxone Sodium 1 gm/ (Sodium Chloride) 100 mls @ 200 mls/hr IV Q12H [facility] Last Admin: 06/26/19 01:28 Dose: 200 mls/hr Iopamidol (Isovue-300 (61%)) 100 ml IVPUSH ONETIME ONE Stop: 06/25/19 10:01 Last Admin: 06/25/19 14:00 Dose: Not Given Magnesium Oxide (Magnesium Oxide) 400 mg PO BID [facility] Last Admin: 06/26/19 07:07 Dose: 400 mg Pantoprazole Sodium (Protonix Iv) 40 mg IVPUSH ONETIME ONE Stop: 06/25/19 01:17 Last Admin: 06/25/19 02:07 Dose: 40 mg - Exam Quality Assessment: DVT Prophylaxis. No: Supplemental Oxygen, Urine Catheter, Skin Breakdown, Restraints General: Alert, Oriented, Cooperative, No Acute Distress HEENT: Pupils Equal, Pupils Reactive, EOMI, Mucous Membr. Moist/[place]. No: Scleral Icterus Neck: Supple, Trachea Midline, No JVD, No Thyromegaly, +2 Carotid Pulse wo Bruit. No: Lymphadenopathy Lungs: Clear to Auscultation, Normal Respiratory Effort. No: Rub Cardiovascular: Regular Rate, Regular Rhythm, No Murmurs. No: Gallops, Rubs GI/Abdominal Exam: Normal Bowel Sounds, Soft, Non-Tender, No Organomegaly, No Distention, No Abnormal Bruit, No Mass, Pelvis Stable, Other (Obese). No: Guarding (Female) Exam: Deferred Back Exam: Normal Inspection, Full Range of Motion. No: CVA Tenderness (L), CVA Tenderness (R), Muscle Spasm Extremities: Normal Inspection, Normal Range of Motion, Non-Tender, No Pedal Edema, Normal Capillary Refill. No: Vasyl's Sign Peripheral Pulses: 2+: Radial (L), Radial (R), Dorsalis Pedis (L), Dorsalis Pedis (R) Skin: Warm, Dry, Intact Neurological: No New Focal Deficit, Other (No clinical orthostasis) Psy/Mental Status: Alert, Normal Affect, Normal Mood. No: Hallucinations, Withdrawal Symptoms - Problem List & Annotations (1) Abdominal pain SNOMED Code(s): 60162463 Code(s): R10.9 - UNSPECIFIED ABDOMINAL PAIN Status: Acute Priority: High Current Visit: No Onset Date: 06/24/19 Qualifiers: Abdominal location: generalized Qualified Code(s): R10.84 - Generalized abdominal pain Annotation/Comment:: Symptoms completely resolved this morning with normal clinical exam as above. Various therapeutic options were discussed with the patient, who does wish to have an additional day of hospitalization so that we can further advance her diet. WBCs are now normal with previous significant leukocytosis on admission. Overall good response to aggressive IV Rocephin and IV Flagyl therapy. Patient is allergic to amoxicillin, however with range of Rocephin to IV Cipro at this time. No reaction from previous IV Rocephin, etc. therapy. Secondary to closed pharmacy tomorrow the patient's planned discharge medications of Cipro, Flagyl, and magnesium oxide were ordered today. Ezekiel Gerardo M.D. at the [facility] assumes care in the a.m. with likely discharge the patient to home tomorrow, if she tolerates changed IV Cipro and advancement of her diet as above. Generalized abdominal pain with clinical exam showing mostly right upper quadrant abdominal pain on admission. Abdominal ultrasound and CT of the abdomen and pelvis results with oral contrast results as per yesterday's emergency room note addendum. Note difficulty obtaining IV access with IV not amenable to IV contrast CT scan of the abdomen. Proper IV access could not be obtained yesterday with oral contrast CT scan conducted as above. Mild hypotension on arrival, however normal lactic acid level with no direct indication of sepsis despite leukocytosis as above. Her blood pressures and vital signs have been stable with resolution of previous fever. High-dose IV Rocephin and additional IV Flagyl initiated in the emergency room. High-dose IV Protonix and IV Pepcid also given the emergency room as GI prophylaxis. Surgical consultation depending on her clinical course. Note retrial of IV placement after patient was rehydrated with 1 L by IV bolus lactated Ringer's initiated in the emergency room, however unsuccessful as above. Secondary to difficult IV access only one blood culture could be obtained. Bobcat work excuse provided for the patient's . Patient to be admitted on telemetry secondary to significant leukocytosis. She would benefit from a colonoscopy and possible additional EGD in the next 34 weeks, once current infection has resolved. C. difficile toxin evaluation is still pending and was sent out today. (2) Dehydration SNOMED Code(s): 41749602 Code(s): E86.0 - DEHYDRATION Status: Acute Priority: High Current Visit : No Onset Date: 06/25/19 Annotation/Comment:: IV lactated Ringer's as above with continuation of IV fluids during early phases of this hospitalization. (3) Mixed anxiety depressive disorder SNOMED Code(s): 585824705 Code(s): F41.8 - OTHER SPECIFIED ANXIETY DISORDERS Status: Chronic Priority: Medium Current Visit: No Annotation/Comment:: Stable by patient history (4) Obesity (BMI 35.0-39.9 without comorbidity) SNOMED Code(s): 121867580, 102967888 Code(s): E66.9 - OBESITY, UNSPECIFIED Status: Chronic Priority: Medium Current Visit: No Annotation/Comment:: Previously normal glycosylated hemoglobin and lipid panel in 2018. Weight loss in moderation advisable. (5) Hypomagnesemia SNOMED Code(s): 029540978 Code(s): E83.42 - HYPOMAGNESEMIA Status: Acute Priority: Medium Current Visit: No Onset Date: 06/25/19 Annotation/Comment:: Initiate magnesium oxide therapy on admission with patient to be discharged with this supplement as above. Close follow-up by regular provider with recommended repeat blood work, including magnesium level at that time. - Problem List Review Problem List Initiated/Reviewed/Updated: Yes - My Orders Last 24 Hours: My Active Orders 06/25/19 14:00 Pantoprazole [ProTONIX IV] 40 mg IVPUSH Q12H 06/25/19 16:20 CLOSTRIDIUM DIFFICILE TOX RFLX [MREF] Routine 06/25/19 20:00 Temazepam [Restoril] 15 mg PO DAILY@1999 PRN 06/25/19 Dinner Heart Healthy Diet [DIET] 06/26/19 05:11 Abdomen Series w Chest 1V [CR] Routine 06/26/19 07:00 Famotidine [Pepcid] 20 mg IVPUSH Q12H 06/26/19 11:00 Ciprofloxacin in D5W [Cipro in D5W 200 MG/100 ML] 200 mg Premix Bag 1 bag IV Q12H 06/26/19 18:00 Magnesium Oxide 400 mg PO QPM - Assessment Assessment:: As above - Plan Plan:: As above. Extensive precautions were given to the patient, who is in agreement with the treatment plan. [facility] assumes care in the a.m. with likely discharge to home tomorrow as above. Discharge medications already present in this facility as above..
[2019-06-26] MEDS ORDERED: Magnesium Oxide 400 MG Tab PO SCH (18:00)
[2019-06-27] MEDS: Pantoprazole 40 MG Vial IVPUSH SCH (03:11)
[2019-06-27] MEDS: Sodium Chloride 0.9% 10 ML Syringe FLUSH PRN (03:11)
[2019-06-27] MEDS: metroNIDAZOLE/Normal Saline 500 MG in Premix Bag 1 BAG IV SCH (03:11)
[2019-06-27] MEDS: Sodium Chloride 0.9% 10 ML Syringe FLUSH SCH (07:36)
[2019-06-27] MEDS: Famotidine 20 MG/2 ML SDV IVPUSH SCH (07:36)
[2019-06-27] MEDS: Levothyroxine 25 MCG Tab PO SCH (07:37)
[2019-06-27] MEDS: FLUoxetine 20 MG Cap PO SCH (07:37)
[2019-06-27] MEDS: Dextromethorphan/guaiFENesin 600-30 MG Tab.ER PO SCH (07:37)
[2019-06-27] MEDS: Cetirizine 10 MG Tab PO SCH (07:37)
[2019-06-27 09:02] VITALS: BP 87/44; PULSE 56
--- NOTE | 2019-06-27 09:07 | PCM.DCSUM1 ---
Discharge Summary - Hospital Course Free Text/Narrative:: Patient admitted with abdominal pain resolved Brief History: Patient seen and admitted to the hospital 3 days ago with generalized abdominal pain was evaluated and treated currently pain-free Diagnosis: Stroke: No - Discharge Data Discharge Date: 06/27/19 Discharge Disposition: Home, Self-Care 01 Condition: Good - Discharge Diagnosis/Problem(s) (1) Abdominal pain SNOMED Code(s): 35477309 ICD Code: R10.9 - UNSPECIFIED ABDOMINAL PAIN Status: Acute Priority: High Current Visit: No Onset Date: 06/24/19 Problem Details: Symptoms completely resolved this morning with normal clinical exam as above. Various therapeutic options were discussed with the patient, who does wish to have an additional day of hospitalization so that we can further advance her diet. WBCs are now normal with previous significant leukocytosis on admission. Overall good response to aggressive IV Rocephin and IV Flagyl therapy. Patient is allergic to amoxicillin, however with range of Rocephin to IV Cipro at this time. No reaction from previous IV Rocephin, etc. therapy. Secondary to closed pharmacy tomorrow the patient's planned discharge medications of Cipro, Flagyl, and magnesium oxide were ordered today. Ezekiel Gerardo M.D. at the [facility] assumes care in the a.m. with likely discharge the patient to home tomorrow, if she tolerates changed IV Cipro and advancement of her diet as above. Generalized abdominal pain with clinical exam showing mostly right upper quadrant abdominal pain on admission. Abdominal ultrasound and CT of the abdomen and pelvis results with oral contrast results as per yesterday's emergency room note addendum. Note difficulty obtaining IV access with IV not amenable to IV contrast CT scan of the abdomen. Proper IV access could not be obtained yesterday with oral contrast CT scan conducted as above. Mild hypotension on arrival, however normal lactic acid level with no direct indication of sepsis despite leukocytosis as above. Her blood pressures and vital signs have been stable with resolution of previous fever. High-dose IV Rocephin and additional IV Flagyl initiated in the emergency room. High-dose IV Protonix and IV Pepcid also given the emergency room as GI prophylaxis. Surgical consultation depending on her clinical course. Note retrial of IV placement after patient was rehydrated with 1 L by IV bolus lactated Ringer's initiated in the emergency room, however unsuccessful as above. Secondary to difficult IV access only one blood culture could be obtained. [employer]cat work excuse provided for the patient's . Patient to be admitted on telemetry secondary to significant leukocytosis. She would benefit from a colonoscopy and possible additional EGD in the next 34 weeks, once current infection has resolved. C. difficile toxin evaluation is still pending and was sent out today. Qualifiers: Abdominal location: generalized Qualified Code(s): R10.84 - Generalized abdominal pain (2) Dehydration SNOMED Code(s): 28200175 ICD Code: E86.0 - DEHYDRATION Status: Acute Priority: High Current Visit: No Onset Date: 06/25/19 Problem Details: IV lactated Ringer's as above with continuation of IV fluids during early phases of this hospitalization. - Patient Instructions Diet: Heart Healthy Diet Activity: As Tolerated Driving: May Drive Today Showering/Bathing: May Shower Notify Provider of: Nausea and/or Vomiting - Discharge Plan *PRESCRIPTION DRUG MONITORING PROGRAM REVIEWED*: Not Applicable *COPY OF PRESCRIPTION DRUG MONITORING REPORT IN PATIENT ELOISE: Not Applicable Home Medications: Home Meds Cetirizine [ZyrTEC] 10 mg PO DAILY 06/25/19 [History] FLUoxetine [PROzac] 20 mg PO DAILY 06/25/19 [History] Levothyroxine 25 mcg PO ACBREAKFAST 06/25/19 [History] guaiFENesin [Mucinex] 600 mg PO BID PRN 06/25/19 [History] Forms: ED Department Discharge Referrals: Lynn Barker, SOUND TRUCK OPERATOR [Primary Care Provider] - - Discharge Summary/Plan Comment DC Time >30 min.: No - General Info Date of Service: 06/27/19 Functional Status: Reports: Pain Controlled, Tolerating Diet - Review of Systems General: Reports: No Symptoms HEENT: Reports: No Symptoms Pulmonary: Reports: No Symptoms Cardiovascular: Reports: No Symptoms Gastrointestinal: Reports: No Symptoms Genitourinary: Reports: No Symptoms Musculoskeletal: Reports: No Symptoms Skin: Reports: No Symptoms Neurological: Reports: No Symptoms Psychiatric: Reports: No Symptoms Systems Review Comment: Patient seen this morning doing quite well would like to go home - Patient Data Vitals - Most Recent: Last Vital Signs Temp 97.8 F 06/27/19 08:00 Pulse 56 L 06/27/19 08:00 Resp 15 06/27/19 08:00 BP 87/44 L 06/27/19 08:00 Pulse Ox 99 06/27/19 08:00 Weight - Most Recent: 295 lb 1.596 oz I&O - Last 24 hours: Intake & Output 06/26/19 06/27/19 06/27/19 22:59 06:59 14:59 Intake Total 2420 200 960 Output Total 2250 700 800 Balance 170 -500 160 TITI Results - Last 24 hrs: Microbiology 06/25/19 01:35 Aerobic Blood Culture - Preliminary Blood - Venous NO GROWTH AFTER 2 DAYS Anaerobic Blood Culture - Preliminary NO GROWTH AFTER 2 DAYS 06/25/19 02:30 Urine Culture - Final Urine, Clean Catch MIXED POSITIVE ADALGISA DAY 1 06/25/19 02:10 Quick Strep Confirmation Culture - Final Throat NO GROUP A STREP ISOLATED REFERENCE RANGE: NEGATIVE Group A Streptococcus Rapid Screen - Final NEGATIVE STREP A SCREEN REFERENCE RANGE: NEGATIVE Med Orders - Current: Current Medications Acetaminophen (Tylenol) 650 mg PO Q4H PRN PRN Reason: Pain Last Admin: 06/25/19 22:11 Dose: 650 mg Cetirizine HCl (Zyrtec) 10 mg PO DAILY [facility] Last Admin: 06/27/19 07:37 Dose: 10 mg Famotidine (Pepcid) 20 mg IVPUSH Q12H [facility] Last Admin: 06/27/19 07:36 Dose: 20 mg Fluoxetine HCl (Prozac) 20 mg PO DAILY [facility] Last Admin: 06/27/19 07:37 Dose: 20 mg Guaifenesin/Dextromethorphan (Mucinex Dm Er 600-30 Mg) 1 tab PO BID [facility] Last Admin: 06/27/19 07:37 Dose: 1 tab Metronidazole 500 mg/ Premix 100 mls @ 100 mls/hr IV Q8H [facility] Last Admin: 06/27/19 03:11 Dose: 100 mls/hr Ciprofloxacin/Dextrose 200 mg/ (Premix) 100 mls @ 100 mls/hr IV Q12H [facility] Last Admin: 06/26/19 22:46 Dose: 100 mls/hr Levothyroxine Sodium (Levothyroxine) 25 mcg PO ACBREAKFAST [facility] Last Admin: 06/27/19 07:37 Dose: 25 mcg Magnesium Oxide (Magnesium Oxide) 400 mg PO QPM [facility] Last Admin: 06/26/19 17:03 Dose: 400 mg Ondansetron HCl (Zofran) 4 mg IVPUSH Q6H PRN PRN Reason: Nausea/Vomiting Last Admin: 06/25/19 09:52 Dose: 4 mg Pantoprazole Sodium (Protonix Iv) 40 mg IVPUSH Q12H [facility] Last Admin: 06/27/19 03:11 Dose: 40 mg Sodium Chloride (Saline Flush) 10 ml FLUSH ASDIRECTED PRN PRN Reason: Keep Vein Open Last Admin: 06/27/19 03:11 Dose: 10 ml Sodium Chloride (Saline Flush) 10 ml FLUSH Q12HR [facility] Last Admin: 06/27/19 07:36 Dose: 10 ml Sodium Chloride (Saline Flush) 10 ml FLUSH ASDIRECTED PRN PRN Reason: Keep Vein Open Last Admin: 06/26/19 01:23 Dose: 10 ml Temazepam (Restoril) 15 mg PO DAILY@2000 PRN PRN Reason: Insomnia Discontinued Medications Diatrizoate Meglum/Diatrizoate Sod (Gastrografin 37%) 30 ml PO ONETIME ONE Stop: 06/25/19 09:14 Last Admin: 06/25/19 13:51 Dose: 30 ml Famotidine (Pepcid) 40 mg IVPUSH ONETIME ONE Stop: 06/25/19 01:17 Last Admin: 06/25/19 02:07 Dose: 40 mg Ceftriaxone Sodium 1 gm/ (Sodium Chloride) 100 mls @ 200 mls/hr IV ONETIME ONE Stop: 06/25/19 01:45 Last Admin: 06/25/19 03:04 Dose: Not Given Lactated Ringer's (Ringers, Lactated) 1,000 mls @ 999 mls/hr IV .BOLUS ONE Stop: 06/25/19 02:16 Last Admin: 06/25/19 02:56 Dose: 999 mls/hr Metronidazole 500 mg/ Premix 100 mls @ 100 mls/hr IV ONETIME ONE Stop: 06/25/19 02:15 Last Admin: 06/25/19 02:55 Dose: 100 mls/hr Ceftriaxone Sodium 2 gm/ (Sodium Chloride) 100 mls @ 100 mls/hr IV ONETIME ONE Stop: 06/25/19 02:51 Last Admin: 06/25/19 01:59 Dose: 100 mls/hr Ceftriaxone Sodium 1 gm/ (Sodium Chloride) 100 mls @ 200 mls/hr IV Q12H [facility] Last Admin: 06/26/19 01:28 Dose: 200 mls/hr Lactated Ringer's (Ringers, Lactated) 1,000 mls @ 100 mls/hr IV ASDIRECTED [facility] Last Admin: 06/26/19 05:03 Dose: 100 mls/hr Iopamidol (Isovue-300 (61%)) 100 ml IVPUSH ONETIME ONE Stop: 06/25/19 10:01 Last Admin: 06/25/19 14:00 Dose: Not Given Magnesium Oxide (Magnesium Oxide) 400 mg PO BID [facility] Last Admin: 06/26/19 07:07 Dose: 400 mg Pantoprazole Sodium (Protonix Iv) 40 mg IVPUSH ONETIME ONE Stop: 06/25/19 01:17 Last Admin: 06/25/19 02:07 Dose: 40 mg - Exam General: Reports: Alert HEENT: Reports: Pupils Equal, Pupils Reactive, EOMI, Mucous Membr. Moist/[place]: Reports: Supple Lungs: Reports: Clear to Auscultation, Normal Respiratory Effort Cardiovascular: Reports: Regular Rate, Regular Rhythm GI/Abdominal Exam: Normal Bowel Sounds, Soft, Non-Tender, No Organomegaly, No Distention, No Abnormal Bruit, No Mass, Pelvis Stable (Female) Exam: Deferred Rectal (Female) Exam: Deferred Back Exam: Reports: Normal Inspection, Full Range of Motion Extremities: Normal Inspection, Normal Range of Motion, Non-Tender, No Pedal Edema, Normal Capillary Refill Skin: Reports: Warm, Dry, Intact Neurological: Reports: No New Focal Deficit Psy/Mental Status: Reports: Alert, Normal Affect, Normal Mood
== END 2019-06-27 10:30 | disposition home or self-care (01) | DRG 392 ==
LOC: LL.ED 00:53 → LL.MS 03:03
PROVIDERS: ADMIT Family Medicine; ATTEND Family Medicine
DX: R10.84 Generalized abdominal pain (principal); Z68.42 Body mass index [BMI] 45.0-49.9, adult; E66.9 Obesity, unspecified; I25.10 Atherosclerotic heart disease of native coronary artery without angina pectoris; E78.00 Pure hypercholesterolemia, unspecified; I10 Essential (primary) hypertension; G43.909 Migraine, unspecified, not intractable, without status migrainosus; Z68.35 Body mass index [BMI] 35.0-35.9, adult; F41.8 Other specified anxiety disorders; E86.0 Dehydration; E83.42 Hypomagnesemia; I95.9 Hypotension, unspecified; H54.7 Unspecified visual loss; E03.9 Hypothyroidism, unspecified; Z90.89 Acquired absence of other organs; Z90.49 Acquired absence of other specified parts of digestive tract; Z87.891 Personal history of nicotine dependence; Z88.0 Allergy status to penicillin; Z88.1 Allergy status to other antibiotic agents; Z88.2 Allergy status to sulfonamides; Z79.890 Hormone replacement therapy; Z79.899 Other long term (current) drug therapy
CPT/HCPCS: 36415; 74022; 80053; 81001; 82150; 83605; 83690; 83735; 84550; 84703; 85025; 85610; 85730; 86308; 87040; 87081; 87086; 87430; 96365; 96375; 99285; C9113; J0696; J3490 ×2; J7050; J7120; 74176; 76700; 82272; 87493; A9270-GY; J0744; J2405; Q9963

== ENCOUNTER 2019-08-16 10:10 | Emergency (ER) | payer BC, MEDICAID ==
[2019-08-16 10:13] VITALS: BP 117/76; PULSE 89
--- NOTE | 2019-08-16 10:38 | EDM.PDOC ---
ED HPI GENERAL MEDICAL PROBLEM - General Chief Complaint: Eye Problems Stated Complaint: [place] eye Time Seen by Provider: 08/16/19 10:10 Source of Information: Reports: Patient History Limitations: Reports: No Limitations - History of Present Illness Onset: Sudden Duration: Day(s):, Getting Worse Location: Reports: Face Severity: Mild Improves with: Reports: None Worsens with: Reports: None Context: Reports: Activity Associated Symptoms: Reports: No Other Symptoms - Related Data Allergies Allergy/AdvReac Type Severity Reaction Status Date / Time amoxicillin Allergy Rash Verified 08/16/19 10:13 clarithromycin [From Biaxin] Allergy Rash Verified 08/16/19 10:13 Penicillins Allergy Rash Verified 08/16/19 10:13 Sulfa (Sulfonamide Allergy Rash Verified 08/16/19 10:13 Antibiotics) Home Meds: Home Meds Cetirizine [ZyrTEC] 10 mg PO DAILY 06/25/19 [History] FLUoxetine [PROzac] 20 mg PO DAILY 06/25/19 [History] Levothyroxine 25 mcg PO ACBREAKFAST 06/25/19 [History] Acetaminophen [Tylenol] 650 mg PO Q4H PRN tablet 06/27/19 [Rx] Past Medical History HEENT History: Reports: Allergic Rhinitis, Impaired Vision, Otitis Media, Other (See Below) Other HEENT History: She wears glasses and soft contact lenses. Cardiovascular History: Reports: None Respiratory History: Reports: Bronchitis, Recurrent, Intubation, Previous Gastrointestinal History: Reports: None, Gastritis, Helicobacter Pylori, Other ( See Below) Other Gastrointestinal History: Previously treated H. pylori infection at age 9. Genitourinary History: Reports: None INSURANCE LICENSING SUPERVISOR History: Reports: Other INSURANCE LICENSING SUPERVISOR History: Amenorrhea secondary to IUD placement. Full term without complications during pregnancies or deliveries. Musculoskeletal History: Reports: None, Fracture, Other (See Below) Other Musculoskeletal History: Right proximal radial and ulnar fracture at age 4. Left radial and ulnar fracture at age 22. Neurological History: Reports: Headaches, Chronic, Migraines Psychiatric History: Reports: Anxiety, Depression Endocrine/Metabolic History: Reports: Hypothyroidism, Obesity/BMI 30+ Hematologic History: Reports: None Immunologic History: Reports: None Oncologic (Cancer) History: Reports: None Dermatologic History: Reports: None - Infectious Disease History Infectious Disease History: Reports: Chicken Pox, Helicobacter Pylori - Past Surgical History Head Surgeries/Procedures: Reports: None HEENT Surgical History: Reports: Adenoidectomy, Myringotomy w Tube(s), Tonsillectomy, Other (See Below) Other HEENT Surgeries/Procedures: Bilateral PE tubes as a child. Tonsillectomy and adenoidectomy on 10/26/02. Cardiovascular Surgical History: Reports: None Respiratory Surgical History: Reports: None GI Surgical History: Reports: None Female Surgical History: Reports: Other (See Below) Other Female Surgeries/Procedures: IUD in February 2017. Endocrine Surgical History: Reports: None Neurological Surgical History: Reports: None Musculoskeletal Surgical History: Reports: ORIF, Other (See Below) Other Musculoskeletal Surgeries/Procedures:: ORIF of proximal right sided radial /ulnar fracture at age 4. Oncologic Surgical History: Reports: None Dermatological Surgical History: Reports: None - Past Imaging History Past Imaging History: Reports: Ultrasound (OB ultrasounds.) Social & Family History - Family History HEENT: Reports: None Cardiac: Reports: CAD, High Cholesterol, AR, Other (See Below) Other Cardiac Family History: Paternal grandfather with fatal AR at age 42 with additional hyperlipidemia. GI: Reports: None : Reports: None OBGYN: Reports: None Musculoskeletal: Reports: None Neurological: Reports: None Psychiatric: Reports: None Endocrine/Metabolic: Reports: Diabetes, Type I, Hypothyroidism, IDDM, Other ( See Below) Other Endocrine/Metabolic Family History: Paternal grandfather with type I IDDM and hypothyroidism. Hematologic: Reports: None Immunologic: Reports: None Dermatologic: Reports: None Oncologic: Reports: Leukemia, Thyroid, Other (See Below) Other Oncologic Family History: Paternal grandfather with thyroid cancer. Paternal grandmother with leukemia at age 67. - Caffeine Use Caffeine Use: Reports: Soda (2 sodas per day). 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[employer].) ED ROS GENERAL - Review of Systems Review Of Systems: See Below Constitutional: Reports: No Symptoms HEENT: Reports: Eye Discharge, Eye Pain Respiratory: Reports: No Symptoms Cardiovascular: Reports: No Symptoms Endocrine: Reports: No Symptoms GI/Abdominal: Reports: No Symptoms : Reports: No Symptoms Musculoskeletal: Reports: No Symptoms Skin: Reports: No Symptoms Neurological: Reports: No Symptoms Psychiatric: Reports: No Symptoms Hematologic/Lymphatic: Reports: No Symptoms Immunologic: Reports: No Symptoms ED EXAM GENERAL W FULL EYE - Physical Exam Exam: See Below Exam Limited By: No Limitations General Appearance: Alert, WD/WN, No Apparent Distress Conjunctiva & Sclera: Bilateral: Conjunctival Edema, Discharge Pupils: Normal Accommodation Pupillary Size: Bilateral: 3 mm Pupillary Reaction: Bilateral: Brisk Ears: Normal External Exam, Normal Canal, Hearing Grossly Normal, Normal TMs Nose: Normal Inspection, Normal Mucosa, No Blood Throat/Mouth: Normal Inspection, Normal Lips, Normal Teeth, Normal Gums, Normal Oropharynx, Normal Voice, No Airway Compromise Head: Atraumatic, Normocephalic Neck: Normal Inspection, Supple, Non-Tender, Full Range of Motion Respiratory/Chest: No Respiratory Distress, Lungs Clear, Normal Breath Sounds, No Accessory Muscle Use, Chest Non-Tender Cardiovascular: Normal Peripheral Pulses, Regular Rate, Rhythm, No Edema, No Gallop, No JVD, No Murmur, No Rub GI/Abdominal: Normal Bowel Sounds, Soft, Non-Tender, No Organomegaly, No Distention, No Abnormal Bruit, No Mass Back Exam: Normal Inspection, Full Range of Motion, NT Extremities: Normal Inspection, Normal Range of Motion, Non-Tender, Normal Capillary Refill, No Pedal Edema Neurological: Alert, Oriented, CN II-XII Intact, Normal Cognition, Normal Gait, Normal Reflexes, No Motor/Sensory Deficits Psychiatric: Normal Affect, Normal Mood Skin Exam: Warm, Dry, Intact, Normal Color, No Rash Lymphatic: No Adenopathy Course - Vital Signs Last Recorded V/S: Last Vital Signs Temp 97.9 F 08/16/19 10:11 Pulse 89 08/16/19 10:11 Resp 20 08/16/19 10:11 BP 117/76 08/16/19 10:11 Pulse Ox 97 08/16/19 10:11 Departure - Departure Time of Disposition: 10:39 Disposition: Home, Self-Care 01 Condition: Fair Clinical Impression: Bilateral, Conjunctivitis, both eyes, Conjunctivitis - Discharge Information *PRESCRIPTION DRUG MONITORING PROGRAM REVIEWED*: No *COPY OF PRESCRIPTION DRUG MONITORING REPORT IN PATIENT ELOISE: No Instructions: Bacterial Conjunctivitis, [id number] Referrals: Mj,Lynn D, PROGRAMMER OR ANALYST [Primary Care Provider] - Forms: ED Department Discharge Care Plan Goals: At this time we'll place polymyxin 1 drop each eye 4 times a day for about 5-7 days she is to return to clinic if not better
== END 2019-08-16 11:00 | disposition home or self-care (01) ==
LOC: LL.ED 10:10
DX: H10.9 Unspecified conjunctivitis (principal); F41.9 Anxiety disorder, unspecified; F32.9 Major depressive disorder, single episode, unspecified; E03.9 Hypothyroidism, unspecified; E66.9 Obesity, unspecified; Z68.42 Body mass index [BMI] 45.0-49.9, adult; Z88.0 Allergy status to penicillin; Z88.1 Allergy status to other antibiotic agents; Z88.2 Allergy status to sulfonamides; Z79.899 Other long term (current) drug therapy
CPT/HCPCS: 99282

== ENCOUNTER 2020-09-06 01:21 | Emergency (ER) | payer BC ==
[2020-09-06 01:24] VITALS: BP 118/58; PULSE 77
[2020-09-06] MEDS ORDERED: Sodium Chloride 0.9% 1,000 ML IV ONE (01:30)
[2020-09-06] MEDS ORDERED: Ondansetron 4 MG/2 ML SDV IVPUSH ONE (01:31)
[2020-09-06 02:09] LABS: CHLORIDE,CL 103 mmol/L (98-107); SODIUM,NA 138 mmol/L (136-145)
--- NOTE | 2020-09-06 02:56 | EDM.PDOC ---
ED HPI GENERAL MEDICAL PROBLEM - General Chief Complaint: General Stated Complaint: Nausea vomitting Time Seen by Provider: 09/06/20 01:50 Source of Information: Reports: Patient History Limitations: Reports: No Limitations - History of Present Illness INITIAL COMMENTS - FREE TEXT/NARRATIVE: Patient comes in with nausea/emesis associated with . Is 7 weeks along. Had similar issues with first two pregnancies. Has not been able to keep much down for last 24 hours. - Related Data Allergies Allergy/AdvReac Type Severity Reaction Status Date / Time amoxicillin Allergy Rash Verified 09/06/20 01:54 clarithromycin [From Biaxin] Allergy Rash Verified 09/06/20 01:54 Penicillins Allergy Rash Verified 09/06/20 01:54 Sulfa (Sulfonamide Allergy Rash Verified 09/06/20 01:54 Antibiotics) Home Meds: Home Meds Levothyroxine 25 mcg PO ACBREAKFAST 06/25/19 [History] Acetaminophen [Tylenol] 650 mg PO Q4H PRN tablet 06/27/19 [Rx] Pnv No.103/Folic/Om3s/Fish Oil [ Gummies] 1 each PO DAILY 09/06/20 [History] Past Medical History HEENT History: Reports: Allergic Rhinitis, Impaired Vision, Otitis Media, Other (See Below) Other HEENT History: She wears glasses and soft contact lenses. Cardiovascular History: Reports: None Respiratory History: Reports: Bronchitis, Recurrent, Intubation, Previous Gastrointestinal History: Reports: None, Gastritis, Helicobacter Pylori, Other (See Below) Other Gastrointestinal History: Previously treated H. pylori infection at age 9. Genitourinary History: Reports: None [employer] [place] History: Reports: Other [employer] [place] History: Amenorrhea secondary to IUD placement. Full term without complications during pregnancies or deliveries. Musculoskeletal History: Reports: None, Fracture, Other (See Below) Other Musculoskeletal History: Right proximal radial and ulnar fracture at age 4. Left radial and ulnar fracture at age 22. Neurological History: Reports: Headaches, Chronic, Migraines Psychiatric History: Reports: Anxiety, Depression Endocrine/Metabolic History: Reports: Hypothyroidism, Obesity/BMI 30+ Hematologic History: Reports: None Immunologic History: Reports: None Oncologic (Cancer) History: Reports: None Dermatologic History: Reports: None - Infectious Disease History Infectious Disease History: Reports: Chicken Pox, Helicobacter Pylori - Past Surgical History Head Surgeries/Procedures: Reports: None HEENT Surgical History: Reports: Adenoidectomy, Myringotomy w Tube(s), Tonsillectomy, Other (See Below) Other HEENT Surgeries/Procedures: Bilateral PE tubes as a child. Tonsillectomy and adenoidectomy on 10/26/02. Cardiovascular Surgical History: Reports: None Respiratory Surgical History: Reports: None GI Surgical History: Reports: None Female Surgical History: Reports: Other (See Below) Other Female Surgeries/Procedures: IUD in February 2017. Endocrine Surgical History: Reports: None Neurological Surgical History: Reports: None Musculoskeletal Surgical History: Reports: ORIF, Other (See Below) Other Musculoskeletal Surgeries/Procedures:: ORIF of proximal right sided radial/ulnar fracture at age 4. Oncologic Surgical History: Reports: None Dermatological Surgical History: Reports: None - Past Imaging History Past Imaging History: Reports: Ultrasound (OB ultrasounds.) Social & Family History - Family History HEENT: Reports: None Cardiac: Reports: CAD, High Cholesterol, IN, Other (See Below) Other Cardiac Family History: Paternal grandfather with fatal IN at age 42 with additional hyperlipidemia. GI: Reports: None : Reports: None OBGYN: Reports: None Musculoskeletal: Reports: None Neurological: Reports: None Psychiatric: Reports: None Endocrine/Metabolic: Reports: Diabetes, Type I, Hypothyroidism, IDDM, Other (See Below) Other Endocrine/Metabolic Family History: Paternal grandfather with type I IDDM and hypothyroidism. Hematologic: Reports: None Immunologic: Reports: None Dermatologic: Reports: None Oncologic: Reports: Leukemia, Thyroid, Other (See Below) Other Oncologic Family History: Paternal grandfather with thyroid cancer. Paternal grandmother with leukemia at age 67. 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 Denies: Fever, Chills, Night Sweats, Diaphoresis HEENT: Reports: No Symptoms Respiratory: Reports: No Symptoms Cardiovascular: Reports: No Symptoms GI/Abdominal: Reports: Decreased Appetite, Nausea, Vomiting. Denies: Abdominal Pain, Constipation, Diarrhea, Distension, Hematemesis, Hematochezia : Reports: No Symptoms Musculoskeletal: Reports: No Symptoms Skin: Reports: No Symptoms Neurological: Reports: No Symptoms Psychiatric: Reports: No Symptoms Hematologic/Lymphatic: Reports: No Symptoms ED EXAM, GENERAL - Physical Exam Exam: See Below Exam Limited By: No Limitations General Appearance: Alert, No Apparent Distress, Obese Eye Exam: Bilateral Eye: EOMI, PERRL Ears: Hearing Grossly Normal Nose: No: Nasal Deformity, Nasal Swelling, Nasal Drainage Throat/Mouth: Normal Lips, Normal Voice, No Airway Compromise Head: Atraumatic, Normocephalic Neck: Normal Inspection, Supple, Non-Tender, Full Range of Motion Respiratory/Chest: No Respiratory Distress, Lungs Clear, Normal Breath Sounds, No Accessory Muscle Use Cardiovascular: Regular Rate, Rhythm, No Murmur GI/Abdominal: Normal Bowel Sounds, Soft, Non-Tender (Female) Exam: Deferred Rectal (Female) Exam: Deferred Extremities: Normal Range of Motion Neurological: Alert, Oriented, Normal Cognition, Normal Gait Psychiatric: Normal Affect, Normal Mood Skin Exam: Warm, Dry, Intact, Normal Color Course - Vital Signs Last Recorded V/S: Last Vital Signs Temp 36.4 C 09/06/20 01:23 Pulse 77 09/06/20 01:23 Resp 12 09/06/20 01:23 BP 118/58 L 09/06/20 01:23 Pulse Ox 98 09/06/20 01:23 - Orders/Labs/Meds Labs: Laboratory Tests 09/06/20 09/06/20 Range/Units 01:35 01:35 WBC 11.8 H (4.0-10.2) K/uL RBC 4.30 (3.77-5.09) M/uL Hgb 13.4 (11.7-15.5) g/dL Hct 38.6 (34.0-46.0) % MCV 89.8 (84.0-98.0) fL MCH 31.2 (28.2-33.3) pg MCHC 34.7 (31.7-36.0) g/dL RDW 12.3 (11.2-14.1) % Plt Count 242 (150-350) K/uL Neut % (Auto) 66.0 (45.0-80.0) % Lymph % (Auto) 26.1 (10.0-50.0) % [place] % (Auto) 6.6 (2.0-14.0) % Eos % (Auto) 1.1 (0.0-5.0) % Baso % (Auto) 0.2 (0.0-2.0) % Neut # (Auto) 7.76 H (1.40-7.00) K/uL Lymph # (Auto) 3.07 (0.50-3.50) K/uL [place] # (Auto) 0.77 (0.00-1.00) K/uL Eos # (Auto) 0.13 (0.00-0.50) K/uL Baso # (Auto) 0.02 (0.00-0.20) K/uL Sodium 138 (136-145) mmol/L Potassium 3.7 (3.5-5.1) mmol/L Chloride 103 (98-107) mmol/L Carbon Dioxide 22.8 (21.0-32.0) mmol/L BUN 9 (7-18) mg/dL Creatinine 0.75 (0.51-1.17) mg/dL Est Cr Clr Drug Dosing 106.41 mL/min Estimated GFR (MDRD) > 60 mL/min Glucose 99 (74-106) mg/dL Calcium 9.0 (8.5-10.1) mg/dL Total Bilirubin 0.3 (0.2-1.0) mg/dL AST 11 L (15-37) U/L ALT 20 (12-78) U/L Alkaline Phosphatase 55 (46-116) IU/L Total Protein 7.2 (6.4-8.2) g/dL Albumin 3.3 L (3.4-5.0) g/dL Meds: Medications Discontinued Medications Generic Name Dose Route Start Last Admin Trade Name Freq PRN Reason Stop Dose Admin Sodium Chloride 1,000 mls @ 999 mls/hr 09/06/20 01:30 09/06/20 01:39 Normal Saline IV 09/06/20 02:30 999 mls/hr .BOLUS ONE Administration Ondansetron HCl 4 mg 09/06/20 01:31 09/06/20 01:39 Zofran IVPUSH 09/06/20 01:32 4 mg ONETIME ONE Administration - Re-Assessments/Exams Free Text/Narrative Re-Assessment/Exam: 09/06/20 03:06 baseline labs requested. IV fluids and zofran given. Patient felt much better after fluids infused. Will send home with to go bottle of Zofran. She is foll owing up with her ObGyn this coming Saturday. To follow up as needed otherwise if she has additional problems. To take 1/2-1tab Zofran PO q6-8 hours prn nausea Departure - Departure Time of Disposition: 02:56 Disposition: Home, Self-Care 01 Condition: Good Clinical Impression: Vomiting of - Discharge Information *PRESCRIPTION DRUG MONITORING PROGRAM REVIEWED*: Not Applicable *COPY OF PRESCRIPTION DRUG MONITORING REPORT IN PATIENT ELOISE: Not Applicable Referrals: Ariela Lowry NP [Primary Care Provider] - Forms: ED Department Discharge, ED Return to Work/School Form Additional Instructions: Follow up as needed. Sepsis Event Note (ED) - Evaluation Sepsis Screening Result: No Definite Risk - Focused Exam Vital Signs: Vital Signs Temp Pulse Resp BP Pulse Ox 09/06/20 01:23 36.4 C 77 12 118/58 L 98
== END 2020-09-06 03:05 | disposition home or self-care (01) ==
LOC: LL.ED 01:21
DX: O21.9 Vomiting of pregnancy, unspecified (principal); O99.281 Endocrine, nutritional and metabolic diseases complicating pregnancy, first trimester; E03.9 Hypothyroidism, unspecified; O99.211 Obesity complicating pregnancy, first trimester; Z88.1 Allergy status to other antibiotic agents; Z88.0 Allergy status to penicillin; Z88.2 Allergy status to sulfonamides; Z79.899 Other long term (current) drug therapy; Z3A.01 Less than 8 weeks gestation of pregnancy
CPT/HCPCS: 36415; 80053; 85025; 96374; 99284-25; J2405; J7030